=== PATIENT | male | born 1990 | race African-American/Black ===

== ENCOUNTER 2019-02-10 18:29 | Emergency (ER) | payer MEDICAID ==
[~2019-02-10] VITALS: Ht 175.3 cm; Wt 90.0 kg
[~2019-02-10 18:29] MED LIST: LISI10TA5; METF-414
[2019-02-10] MEDS ORDERED: METHYLPREDNISOLONE SOD SUCC 125 MG/2 ML VIAL IM STA (21:00)
[2019-02-10] MEDS ORDERED: KETOROLAC 60MG/2ML VIAL IM STA (21:00)
[2019-02-10 22:35] VITALS: BP 156/98
== END 2019-02-11 00:30 | disposition home or self-care (01) ==
LOC: ER 18:29
DX: M25.562 Pain in left knee (principal); M10.9 Gout, unspecified; E11.9 Type 2 diabetes mellitus without complications; I10 Essential (primary) hypertension; F12.10 Cannabis abuse, uncomplicated; Z88.9 Allergy status to unspecified drugs, medicaments and biological substances; Z88.8 Allergy status to other drugs, medicaments and biological substances; Z88.5 Allergy status to narcotic agent
CPT/HCPCS: 96372; 99283; J1885; J2930

== ENCOUNTER 2019-03-20 23:34 | Emergency (ER) | payer MEDICAID, MEDICARE ==
[~2019-03-20] VITALS: Ht 175.3 cm; Wt 82.0 kg
[2019-03-21] MEDS ORDERED: SODIUM CHLORIDE 0.9% 1,000 ML IV ONE (00:45)
[2019-03-21] MEDS ORDERED: KETOROLAC 15MG/ML VIAL IV ONE (00:45)
[2019-03-21 01:33] LABS: BASOPHILS % 0.4 % (0.0-2.0); EOSINOPHILS % 1.9 % (0.0-5.0); HEMATOCRIT. 38.4 % (42.0-52.0); LYMPHOCYTES % 31.3 % (20.0-50.0); MEAN CORPUSCULAR HEMOGLOBIN 29.9 pg (28.0-32.0); MEAN CORPUSCULAR VOLUME 88.8 fL (80.0-94.0); MEAN PLATELET VOLUME 8.8 fl (7.4-10.4); NEUTROPHILS % 59.4 % (40.0-76.0); PLATELET 259 x1000/uL (130-400); RED BLOOD CELL COUNT 4.33 mill/uL (4.7-6.1); RED CELL DISTRIBUTION WIDTH 14.3 % (11.6-14.6)
[2019-03-21 01:43] LABS: CHLORIDE 109 mEq/L (98-107)
[2019-03-21] MEDS ORDERED: IOHEXOL-350 100 ML BOTTLE ONE (02:34)
[2019-03-21] MEDS ORDERED: ONDANSETRON HCL 4MG/2ML INJ IV ONE (03:45)
[2019-03-21] MEDS ORDERED: MORPHINE SULFATE 4 MG/ML CPJ (NOT FOR IM USE) IV ONE (03:45)
[2019-03-21 05:30] VITALS: BP 121/86
== END 2019-03-21 05:54 | disposition home or self-care (01) ==
LOC: ER 23:34
DX: R51 Headache (principal); R07.9 Chest pain, unspecified; F41.9 Anxiety disorder, unspecified; E11.9 Type 2 diabetes mellitus without complications; I10 Essential (primary) hypertension; F12.10 Cannabis abuse, uncomplicated; Z88.5 Allergy status to narcotic agent; Z88.1 Allergy status to other antibiotic agents; Z88.8 Allergy status to other drugs, medicaments and biological substances; Z86.79 Personal history of other diseases of the circulatory system
CPT/HCPCS: 36415; 70496; 80053; 85025; 93005; 96374; 96375; 99284; J1885; J2270; J2405; J7030; Q9967

== ENCOUNTER 2020-08-28 23:10 | Emergency (ER) | payer MEDICAID, MEDICARE, OTHER ==
[~2020-08-28] VITALS: Ht 175.3 cm; Wt 91.0 kg
[~2020-08-28 23:10] MED LIST changes: +LISI10TA26; -LISI10TA5
[2020-08-28] MEDS ORDERED: SODIUM CHLORIDE 0.9% 1,000 ML IV ONE (23:15)
[2020-08-28] MEDS ORDERED: NALOXONE HCL 0.4 MG/ML 1ML VIAL IV PRN (23:15)
[2020-08-28 23:55] LABS: BASOPHILS % 0.4 % (0.0-2.0); EOSINOPHILS % 1.3 % (0.0-5.0); HEMATOCRIT. 38.2 % (42.0-52.0); HEMOGLOBIN. 12.9 g/dL (14.0-18.0); LYMPHOCYTES % 34.4 % (20.0-50.0); MEAN CORPUSCULAR HEMOGLOBIN 29.9 pg (28.0-32.0); MEAN CORPUSCULAR VOLUME 88.1 fL (80.0-94.0); MEAN PLATELET VOLUME 9.4 fl (7.4-10.4); MONOCYTES % 5.2 % (2.0-8.0); NEUTROPHILS % 58.7 % (40.0-76.0); PLATELET 258 x1000/uL (130-400); RED BLOOD CELL COUNT 4.34 mill/uL (4.7-6.1); RED CELL DISTRIBUTION WIDTH 14.4 % (11.6-14.6)
[2020-08-28 23:58] LABS: CHLORIDE 107 mEq/L (98-107)
[2020-08-29 00:02] LABS: ETHANOL BLOOD < 10 mg/dL
[2020-08-29 01:32] LABS: CLARITY URINE CLEAR (CLEAR); COLOR URINE YELLOW (YELLOW); KETONES URINE NEGATIVE (NEGATIVE); LEUKOCYTE ESTERASE URINE NEGATIVE (NEGATIVE); NITRITE URINE NEGATIVE (NEGATIVE); OCCULT BLOOD URINE NEGATIVE (NEGATIVE); PROTEIN URINE 1+ (NEGATIVE); SPECIFIC GRAVITY URINE 1.014 (1.005-1.030); UROBILINOGEN URINE 0.2 E.U./dL (0.2-1.0)
[2020-08-29 01:41] LABS: *AMPHETAMINES SCREEN URINE NEGATIVE (NEGATIVE); *BARBITURATES SCREEN URINE NEGATIVE (NEGATIVE); *BENZODIAZEPINES SCREEN URINE PRESUMTIVE POSITIVE (NEGATIVE); *COCAINE SCREEN URINE PRESUMTIVE POSITIVE (NEGATIVE); CANNABINOID URINE SCREEN PRESUMTIVE POSITIVE (NEGATIVE); METHADONE URINE SCREEN NEGATIVE (NEGATIVE); OPIATES URINE SCREEN PRESUMTIVE POSITIVE (NEGATIVE)
[2020-08-29 01:42] LABS: PHENCYCLIDINE URINE SCREEN NEGATIVE (NEGATIVE)
[2020-08-29] MEDS ORDERED: NALO4SPR BOTHNSTRLS (01:49)
[2020-08-29 02:21] VITALS: BP 155/84
== END 2020-08-29 02:21 | disposition home or self-care (01) ==
LOC: ER 23:10
DX: T40.7X1A Poisoning by cannabis (derivatives), accidental (unintentional), initial encounter (principal); F14.10 Cocaine abuse, uncomplicated; F13.10 Sedative, hypnotic or anxiolytic abuse, uncomplicated; F11.10 Opioid abuse, uncomplicated; R94.6 Abnormal results of thyroid function studies; Z88.6 Allergy status to analgesic agent; Z88.8 Allergy status to other drugs, medicaments and biological substances; Y92.810 Car as the place of occurrence of the external cause
CPT/HCPCS: 36415; 71045; 80053; 80305; 80307; 80320; 80329; 81003; 84443; 85025; 93005; 96360; 99285; J7030; G0480

== ENCOUNTER 2022-02-05 23:16 | Emergency (ER) | payer MEDICAID, OTHER ==
[~2022-02-05] VITALS: Ht 175.3 cm; Wt 82.0 kg
[~2022-02-05 23:16] MED LIST changes: +NALO4SPR BOTHNSTRLS
[2022-02-05 23:26] VITALS: BP 152/88
[2022-02-05] MEDS ORDERED: IBUPROFEN 600MG TABLET PO ONE (23:30)
[2022-02-06] MEDS ORDERED: IBUPROFEN 600MG TABLET PO NR (01:30)
[2022-02-06] MEDS ORDERED: IBUP-2029 MT (02:04)
[2022-02-06] MEDS ORDERED: CYCL10TA21 MT (02:04)
== END 2022-02-06 02:31 | disposition home or self-care (01) ==
LOC: ER 23:16
DX: M54.16 Radiculopathy, lumbar region (principal); M54.50 Low back pain, unspecified; F12.10 Cannabis abuse, uncomplicated; Z79.899 Other long term (current) drug therapy
CPT/HCPCS: 72100; 99283